=== PATIENT | male | born 1965 | race Hispanic/Latino ===

== ENCOUNTER 2018-09-04 01:48 | Emergency (ER) | payer OTHER ==
[~2018-09-04 01:48] MED LIST: ATOR20TA65 PO; ATRO10DR OP; CHOL200074 PO; DILT-36 PO; FERR-82 PO; FOLI1TAB85 PO; FURO80TA3 PO; INSU100I21 SQ; LABE100T5 PO; PRED5DRO25 OP
[2018-09-04 02:48] LABS: BASOPHILS % (AUTO) 0.7 % (0.0-5.0); EOSINOPHILS % (AUTO) 3.3 % (0.0-8.0); HEMATOCRIT 31.1 % (42-54); LYMPHOCYTES % (AUTO) 20.7 % (21.0-51.0); MEAN CORPUSCULAR HGB CONC 32.4 g/dL (32.0-36.0); MEAN CORPUSCULAR VOLUME 80.2 fL (79-99); NEUTROPHILS % (AUTO) 67.3 % (40.0-77.0); NUCLEATED RED BLOOD CELLS 0.1 % (0.0-0.19); PLATELET COUNT (AUTO) 260 K/uL (130-400); RED BLOOD CELL COUNT(AUTO) 3.88 MIL/uL (4.50-6.20); RED CELL DISTRIBUTION WIDTH 15.9 % (11.0-15.5); WHITE BLOOD COUNT (AUTO) 12.1 K/uL (4.8-10.8)
[2018-09-04 02:56] LABS: ALANINE AMINOTRANSFERASE 28 U/L (12-78); ALBUMIN 3.4 g/dL (3.5-5.0); ASPARTATE AMINOTRANSFERASE 21 U/L (10-37); BILIRUBIN,DIRECT < 0.1 mg/dL (0.0-0.3); BILIRUBIN,TOTAL 0.2 mg/dL (0.2-1.0); CARBON DIOXIDE 27 mmol/L (21-32); CHLORIDE 102 mmol/L (101-111); CREATININE 5.5 mg/dL (0.5-1.5); GLOMERULAR FILTR. RATE CALC 12 mL/min (>60); GLUCOSE,RANDOM 146 mg/dL (70-105); SODIUM SERUM 140 mmol/L (136-145); TOTAL PROTEIN, SERUM 7.8 g/dL (6.0-8.3)
[2018-09-04 02:57] LABS: UREA NITROGEN, BLOOD 81 mg/dL (7-18)
[2018-09-04 03:18] LABS: APPEARANCE,URINE Clear (CLEAR); BILIRUBIN,URINE Negative (NEGATIVE); COLOR,URINE Yellow (YELLOW); GLUCOSE, URINE (UA) Negative (NEGATIVE); KETONES,URINE Negative (NEGATIVE); LEUKOCYTE ESTERASE ,URINE Negative (NEGATIVE); NITRATE,URINE Negative (NEGATIVE); OCCULT BLOOD,URINE Trace (NEGATIVE); PH,URINE 5.5 (5.0-8.0); PROTEIN,URINE POS 2+ (NEGATIVE); UROBILINOGEN,URINE 0.2 mg/dL (0.2-1.0)
[2018-09-04] MEDS ORDERED: MAGNESIUM CITRATE 296 ML SOLUTION ONE (03:19)
[2018-09-04 03:26] LABS: INR 0.93 (0.85-1.15); PARTIAL THROMBOPLASTIN TIME 30.3 SEC (26.3-35.5); PROTHROMBIN TIME 9.8 SEC (9.6-11.6)
[2018-09-04 03:46] LABS: BACTERIA,URINE None Seen /HPF (None Seen); RBC,URINE 0-1 /HPF (0-1); SQUAMOUS EPITHELIAL CELL,UR Rare /HPF (0-2); WBC,URINE None Seen /HPF (0-1)
== END 2018-09-04 04:03 | disposition home or self-care (01) ==
LOC: EDH 01:48
DX: K59.00 Constipation, unspecified (principal); I13.2 Hypertensive heart and chronic kidney disease with heart failure and with stage 5 chronic kidney disease, or end stage renal disease; E11.22 Type 2 diabetes mellitus with diabetic chronic kidney disease; N18.6 End stage renal disease; I50.9 Heart failure, unspecified; I25.10 Atherosclerotic heart disease of native coronary artery without angina pectoris; E78.5 Hyperlipidemia, unspecified; Z98.890 Other specified postprocedural states
CPT/HCPCS: 36415; 74176; 80048; 80076; 81001; 85025; 85610; 85730; 93005

== ENCOUNTER 2018-12-26 06:29 | Emergency (ER) | payer OTHER ==
[2018-12-26 08:10] LABS: RAPID GROUP A STREP NEGATIVE (NEGATIVE)
[2018-12-26 08:12] LABS: BASOPHILS % (AUTO) 0.6 % (0.0-5.0); EOSINOPHILS % (AUTO) 1.4 % (0.0-8.0); HEMATOCRIT 26.4 % (42-54); LYMPHOCYTES % (AUTO) 6.4 % (21.0-51.0); MEAN CORPUSCULAR HEMOGLOBIN 26.2 pg (27.0-33.0); MONOCYTES % (AUTO) 7.7 % (3.0-13.0); NEUTROPHILS % (AUTO) 83.9 % (40.0-77.0); PLATELET COUNT (AUTO) 237 K/uL (130-400); RED BLOOD CELL COUNT(AUTO) 3.23 MIL/uL (4.50-6.20); RED CELL DISTRIBUTION WIDTH 16.3 % (11.0-15.5)
[2018-12-26 08:28] LABS: ALBUMIN 3.3 g/dL (3.5-5.0); BILIRUBIN,TOTAL 0.4 mg/dL (0.2-1.0); CREATININE 5.6 mg/dL (0.5-1.5); POTASSIUM 4.4 mmol/L (3.5-5.1); TOTAL PROTEIN, SERUM 7.4 g/dL (6.0-8.3)
[2018-12-26 08:43] LABS: B-TYPE NATRIURETIC PEPTIDE 378 pg/mL (0-100)
[2018-12-26 09:09] LABS: APPEARANCE,URINE Clear (CLEAR); BILIRUBIN,URINE Negative (NEGATIVE); COLOR,URINE Yellow (YELLOW); GLUCOSE, URINE (UA) Negative (NEGATIVE); KETONES,URINE Negative (NEGATIVE); LEUKOCYTE ESTERASE ,URINE Negative (NEGATIVE); NITRATE,URINE Negative (NEGATIVE); OCCULT BLOOD,URINE Trace (NEGATIVE); PROTEIN,URINE POS 2+ mg/dL (NEGATIVE)
[2018-12-26 09:17] LABS: BACTERIA,URINE None Seen /HPF (None Seen); RBC,URINE 0-1 /HPF (0-1); SQUAMOUS EPITHELIAL CELL,UR Rare /HPF (0-2); WBC,URINE None Seen /HPF (0-1)
== END 2018-12-26 10:04 | disposition home or self-care (01) ==
LOC: EDH 06:29
DX: B34.9 Viral infection, unspecified (principal); I13.2 Hypertensive heart and chronic kidney disease with heart failure and with stage 5 chronic kidney disease, or end stage renal disease; I50.9 Heart failure, unspecified; E11.22 Type 2 diabetes mellitus with diabetic chronic kidney disease; N18.6 End stage renal disease; I25.10 Atherosclerotic heart disease of native coronary artery without angina pectoris; E78.5 Hyperlipidemia, unspecified; Z79.4 Long term (current) use of insulin; Z87.891 Personal history of nicotine dependence
CPT/HCPCS: 36415; 71045; 80053; 81001; 83880; 85025; 87804; 87880; 93005

== ENCOUNTER 2019-02-04 10:51 | Inpatient (IN) | payer OTHER ==
[~2019-02-04] VITALS: Ht 172.7 cm; Wt 119.3 kg
[2019-02-04 11:37] LABS: BASOPHILS % (AUTO) 0.1 % (0.0-5.0); EOSINOPHILS % (AUTO) 5.1 % (0.0-8.0); HEMATOCRIT 25.9 % (42-54); LYMPHOCYTES % (AUTO) 17.5 % (21.0-51.0); MEAN CORPUSCULAR HEMOGLOBIN 26.7 pg (27.0-33.0); MEAN CORPUSCULAR HGB CONC 32.5 g/dL (32.0-36.0); MONOCYTES % (AUTO) 8.7 % (3.0-13.0); NEUTROPHILS % (AUTO) 68.6 % (40.0-77.0); NUCLEATED RED BLOOD CELLS 0.1 % (0.0-0.19); PLATELET COUNT (AUTO) 198 K/uL (130-400); RED BLOOD CELL COUNT(AUTO) 3.16 MIL/uL (4.50-6.20); RED CELL DISTRIBUTION WIDTH 16.3 % (11.0-15.5); WHITE BLOOD COUNT (AUTO) 10.9 K/uL (4.8-10.8)
[2019-02-04] MEDS ORDERED: FUROSEMIDE 10 MG/ML 4ML VIAL ONE (11:47)
[2019-02-04] MEDS ORDERED: NITROGLYCERIN 1GM/1 INCH PACKET TD ONE (11:49)
[2019-02-04 11:52] LABS: ALBUMIN 3.5 g/dL (3.5-5.0); BILIRUBIN,DIRECT 0.1 mg/dL (0.0-0.3); BILIRUBIN,TOTAL 0.3 mg/dL (0.2-1.0); CREATININE 5.6 mg/dL (0.5-1.5); POTASSIUM 4.9 mmol/L (3.5-5.1); TOTAL PROTEIN, SERUM 7.4 g/dL (6.0-8.3)
[2019-02-04] MEDS ORDERED: HYDRALAZINE HCL 20 MG/ML VIAL IV PRN (16:00)
[2019-02-04] MEDS ORDERED: ONDANSETRON HCL 4 MG/2 ML VIAL IV PRN (16:00)
[2019-02-04] MEDS ORDERED: ACETAMINOPHEN 325 MG TAB PO PRN ×2 (16:00)
[2019-02-04] MEDS ORDERED: BUMETANIDE 0.25 MG/ML 10 ML VIAL IV SCH (16:00)
[2019-02-04] MEDS ORDERED: NITROGLYCERIN 0.4 MG SL TAB SL PRN (16:00)
[2019-02-04] MEDS ORDERED: BUMETANIDE 0.25 MG/ML 10 ML 40 ML IV SCH (16:30)
[2019-02-04] MEDS: INSULIN GLARGINE 100 UNITS/ML 10 ML VIAL SQ SCH (21:00)
[2019-02-04] MEDS: ATORVASTATIN CALCIUM 20 MG TABLET PO SCH (21:00)
[2019-02-04] MEDS: HEPARIN SODIUM 5000UNIT/ML 1ML VIAL SQ SCH (21:00)
[2019-02-04] MEDS ORDERED: HEPARIN SODIUM 5000UNIT/ML 1ML VIAL ONE (21:22)
[2019-02-04] MEDS ORDERED: FAMOTIDINE/PF 20 MG/2 ML VIAL IV ONE (21:22)
[2019-02-04] MEDS ORDERED: ATORVASTATIN CALCIUM 20 MG TABLET ONE (21:22)
[2019-02-04 22:19] VITALS: BP 163/99
[2019-02-05 04:28] VITALS: BP 152/70
[2019-02-05] MEDS: INSULIN GLARGINE 100 UNITS/ML 10 ML VIAL SQ SCH ×2 (06:44→21:00)
[2019-02-05 07:00] VITALS: BP 181/83
[2019-02-05] MEDS ORDERED: EPOETIN ALFA 10,000 UNIT/ML VIAL SQ SCH (08:45)
[2019-02-05] MEDS: HEPARIN SODIUM 5000UNIT/ML 1ML VIAL SQ SCH ×2 (08:51→21:00)
[2019-02-05] MEDS: FAMOTIDINE/PF 20 MG/2 ML VIAL IV SCH (09:29)
[2019-02-05] MEDS: DILTIAZEM HCL 120 MG CAP.SR.24H PO SCH (09:30)
[2019-02-05] MEDS: FOLIC ACID/VITAMIN B COMP W-C 1 MG CAPSULE PO SCH (09:30)
[2019-02-05 11:00] VITALS: BP 185/81
--- NOTE | 2019-02-05 15:37 | NUR ---
DC PLAN VISITED WITH PATIENT. PATIENT LIVES WITH SPOUSE. INDEPENDENT ABLE TO PERFORM ADL'S. PATIENT HAS NO SERVICES. PATIENT HAS A SCOOTER, WALKER, WHEEL CHAIR, CPAP. FEELS SAFE TO RETURN HOME. NO DIALYSIS DOES NOT WANT. Addendum: 02/05/19 at 1539 by BUZZ STANLEY RN CM Amended: Links added.
[2019-02-05 16:00] VITALS: BP 145/73
[2019-02-05] MEDS: INSULIN HUMULIN R 100 UNIT/ML 3ML SQ SCH ×2 (16:30→21:00)
[2019-02-05 19:16] VITALS: BP 161/75
[2019-02-05] MEDS: ATORVASTATIN CALCIUM 20 MG TABLET PO SCH (21:43)
--- NOTE | 2019-02-05 21:50 | NUR ---
Subcutaneous heparin non-admin subcutaneous heparin not administered do to thrombocytopenia.
[2019-02-05] MEDS: LACTULOSE 20 GM/30 ML UDCUP PO PRN (22:00)
[2019-02-05 23:44] VITALS: BP 153/81
[2019-02-06 03:40] VITALS: BP 158/73
[2019-02-06 04:06] LABS: HEMATOCRIT 30.3 % (42-54); MEAN CORPUSCULAR HEMOGLOBIN 26.7 pg (27.0-33.0); MEAN CORPUSCULAR HGB CONC 32.5 g/dL (32.0-36.0); MEAN CORPUSCULAR VOLUME 82.1 fL (79-99); PLATELET COUNT (AUTO) 256 K/uL (130-400); RED BLOOD CELL COUNT(AUTO) 3.69 MIL/uL (4.50-6.20); RED CELL DISTRIBUTION WIDTH 16.4 % (11.0-15.5); WHITE BLOOD COUNT (AUTO) 8.9 K/uL (4.8-10.8)
[2019-02-06 04:16] LABS: PHOSPHORUS 6.5 mg/dL (2.5-4.9); POTASSIUM 4.8 mmol/L (3.5-5.1)
[2019-02-06] MEDS: INSULIN HUMULIN R 100 UNIT/ML 3ML SQ SCH ×4 (06:16→21:00)
[2019-02-06] MEDS: LACTULOSE 20 GM/30 ML UDCUP PO PRN (06:29)
[2019-02-06] MEDS: INSULIN GLARGINE 100 UNITS/ML 10 ML VIAL SQ SCH ×2 (06:29→21:00)
[2019-02-06 07:00] VITALS: BP 152/72
--- NOTE | 2019-02-06 07:30 | NUR ---
ASSESSMENT ENCOUNTERED PT A&OX3, CALM COOPERATIVE AND DOES NOT APPEAR TO BE IN ANY DISTRESS NOR ANY NEURO DEFICITS PRESENT. PT DENIES PAIN, SOB, NAUSEA. PT IS AMBULATORY, GAIT SLOW BUT STEADY WITH ASSIST. PT IS LEFT EYE BLIND. CALL LIGHT WITHIN REACH, FAMILY AT BEDSIDE.
[2019-02-06] MEDS: DILTIAZEM HCL 120 MG CAP.SR.24H PO SCH (08:09)
[2019-02-06] MEDS: FAMOTIDINE/PF 20 MG/2 ML VIAL IV SCH (08:09)
[2019-02-06] MEDS: FOLIC ACID/VITAMIN B COMP W-C 1 MG CAPSULE PO SCH (08:09)
[2019-02-06] MEDS: HEPARIN SODIUM 5000UNIT/ML 1ML VIAL SQ SCH ×2 (08:17→19:24)
[2019-02-06 10:35] LABS: APPEARANCE,URINE Clear (CLEAR); BILIRUBIN,URINE Negative (NEGATIVE); COLOR,URINE Yellow (YELLOW); GLUCOSE, URINE (UA) Negative (NEGATIVE); KETONES,URINE Negative (NEGATIVE); LEUKOCYTE ESTERASE ,URINE Negative (NEGATIVE); NITRATE,URINE Negative (NEGATIVE); OCCULT BLOOD,URINE Trace (NEGATIVE); PROTEIN,URINE POS 2+ mg/dL (NEGATIVE); UROBILINOGEN,URINE 0.2 mg/dL (0.2-1.0)
[2019-02-06 10:57] LABS: BACTERIA,URINE None Seen /HPF (None Seen); RBC,URINE 0-1 /HPF (0-1); SQUAMOUS EPITHELIAL CELL,UR 0-2 /HPF (0-2); WBC,URINE None Seen /HPF (0-1)
[2019-02-06 11:00] VITALS: BP 150/75
[2019-02-06] MEDS ORDERED: COMPOUND IV MISC 1 EACH IVSOLN MISC PRN (13:30)
[2019-02-06 16:00] VITALS: BP 149/84
[2019-02-06] MEDS: FUROSEMIDE 40 MG TABLET PO SCH (18:25)
[2019-02-06 19:09] VITALS: BP 142/95
[2019-02-06] MEDS: ATORVASTATIN CALCIUM 20 MG TABLET PO SCH (21:49)
[2019-02-06 23:26] VITALS: BP 131/66
[2019-02-07 03:49] VITALS: BP 160/90
[2019-02-07] MEDS: INSULIN HUMULIN R 100 UNIT/ML 3ML SQ SCH (05:28)
[2019-02-07 07:00] VITALS: BP 178/87
[2019-02-07] MEDS: INSULIN GLARGINE 100 UNITS/ML 10 ML VIAL SQ SCH (07:30)
--- NOTE | 2019-02-07 07:35 | NUR ---
ASSESSMENT ENCOUNTERED PT AMBULATING FROM BATHROOM AND BACK TO BED, GAIT SLOW BUT STEADY WITH ASSISTANCE. PT DENIES PAIN, SOB, NAUSEA. PT IS LEFT EYE BLIND. PT IS A&OX3, CALM COOPERATIVE AND DOES NOT APPEAR TO BE IN ANY DISTRESS NOR ANY NEURO DEFICITS PRESENT. CALL LIGHT WITHIN REACH, FAMILY AT BEDSIDE.
[2019-02-07] MEDS: HEPARIN SODIUM 5000UNIT/ML 1ML VIAL SQ SCH (08:38)
[2019-02-07] MEDS ORDERED: IRON SUCROSE COMPLEX 100 MG in SODIUM CHLORIDE 0.9% 50 ML IV SCH (09:00)
[2019-02-07] MEDS: FOLIC ACID/VITAMIN B COMP W-C 1 MG CAPSULE PO SCH (09:03)
[2019-02-07] MEDS: DILTIAZEM HCL 120 MG CAP.SR.24H PO SCH (09:04)
[2019-02-07] MEDS: FUROSEMIDE 40 MG TABLET PO SCH (09:04)
[2019-02-07 11:00] VITALS: BP 185/86
--- NOTE | 2019-02-07 12:00 | NUR ---
DISCHARGE INSTRUCTIONS GIVEN, PIV REMOVED AND INTACT, DISCHARGE HOME TO FAMILY VEHICLE VIA WHEELCHAIR.
[2019-02-12] MEDS ORDERED: EPOETIN ALFA 10,000 UNIT/ML VIAL SQ SCH (09:00)
== END 2019-02-07 15:05 | disposition home or self-care (01) | DRG 291 ==
LOC: EDH 10:51 → EEVIPCON 10:51 → EDHIP 15:57 → 2AH 22:10
PROVIDERS: ADMIT Internal Medicine; ATTEND Internal Medicine
DX: I13.2 Hypertensive heart and chronic kidney disease with heart failure and with stage 5 chronic kidney disease, or end stage renal disease (principal); I50.31 Acute diastolic (congestive) heart failure; N18.5 Chronic kidney disease, stage 5; J81.1 Chronic pulmonary edema; Z68.41 Body mass index [BMI] 40.0-44.9, adult; N17.9 Acute kidney failure, unspecified; E87.70 Fluid overload, unspecified; E11.22 Type 2 diabetes mellitus with diabetic chronic kidney disease; R09.89 Other specified symptoms and signs involving the circulatory and respiratory systems; D63.1 Anemia in chronic kidney disease; E11.21 Type 2 diabetes mellitus with diabetic nephropathy; E11.40 Type 2 diabetes mellitus with diabetic neuropathy, unspecified; E66.9 Obesity, unspecified; E78.5 Hyperlipidemia, unspecified; G47.33 Obstructive sleep apnea (adult) (pediatric); H54.62 Unqualified visual loss, left eye, normal vision right eye; I48.0 Paroxysmal atrial fibrillation; M17.0 Bilateral primary osteoarthritis of knee; Z91.19 Patient's noncompliance with other medical treatment and regimen; Z83.3 Family history of diabetes mellitus; Z81.1 Family history of alcohol abuse and dependence; Z83.79 Family history of other diseases of the digestive system; Z82.41 Family history of sudden cardiac death; Z82.49 Family history of ischemic heart disease and other diseases of the circulatory system
CPT/HCPCS: 36415; 71045; 80048; 80076; 81001; 82728; 82948; 83540; 83550; 83880; 84100; 84484; 85025; 85027; 93005; 99291; G0378; J0885; J1644; J1756; J1940; J3490

== ENCOUNTER 2019-03-14 13:59 | Observation (INO) | payer OTHER ==
[~2019-03-14] VITALS: Ht 172.7 cm; Wt 117.5 kg
[2019-03-14] MEDS ORDERED: ONDANSETRON HCL 4 MG/2 ML VIAL ONE (14:50)
[2019-03-14] MEDS ORDERED: MORPHINE SULFATE 4 MG/1ML SYG ONE (14:50)
[2019-03-14] MEDS ORDERED: SODIUM CHLORIDE 0.9% 1000ML 1,000 ML IV ONE (14:51)
[2019-03-14] MEDS ORDERED: IOHEXOL 350 MG/ML 100ML INFUS..BTL IV ONE (15:07)
[2019-03-14 15:25] LABS: BASOPHILS % (AUTO) 1.2 % (0.0-5.0); EOSINOPHILS % (AUTO) 3.3 % (0.0-8.0); HEMATOCRIT 32.3 % (42-54); LYMPHOCYTES % (AUTO) 17.8 % (21.0-51.0); MEAN CORPUSCULAR HEMOGLOBIN 26.2 pg (27.0-33.0); MEAN CORPUSCULAR HGB CONC 32.5 g/dL (32.0-36.0); MEAN CORPUSCULAR VOLUME 80.7 fL (79-99); MONOCYTES % (AUTO) 7.3 % (3.0-13.0); NEUTROPHILS % (AUTO) 70.4 % (40.0-77.0); PLATELET COUNT (AUTO) 237 K/uL (130-400); RED CELL DISTRIBUTION WIDTH 16.2 % (11.0-15.5); WHITE BLOOD COUNT (AUTO) 8.4 K/uL (4.8-10.8)
[2019-03-14 15:49] LABS: INR 0.97 (0.85-1.15); PARTIAL THROMBOPLASTIN TIME 31.7 SEC (26.3-35.5); PROTHROMBIN TIME 10.2 SEC (9.6-11.6)
[2019-03-14 15:54] LABS: ALBUMIN 3.5 g/dL (3.5-5.0); BILIRUBIN,TOTAL 0.3 mg/dL (0.2-1.0); CREATININE 6.1 mg/dL (0.5-1.5); TOTAL PROTEIN, SERUM 7.8 g/dL (6.0-8.3)
[2019-03-14] MEDS ORDERED: DEXTROSE 50%-WATER 50 ML DISP.SYRIN IV PRN (18:30)
[2019-03-14] MEDS ORDERED: GLUCAGON 1MG KIT 1 MG ML IM PRN (18:30)
[2019-03-14] MEDS ORDERED: ONDANSETRON HCL 4 MG/2 ML VIAL IV PRN (18:30)
[2019-03-14] MEDS ORDERED: DEXTROSE 5 % AND 0.9 % NACL 1,000 ML IV SCH (18:30)
[2019-03-14] MEDS ORDERED: NITROGLYCERIN 0.4 MG SL TAB SL PRN (18:30)
[2019-03-14 18:52] LABS: HEMOGLOBIN A1C 8.1 % (4.0-6.0)
[2019-03-14] MEDS ORDERED: ACETAMINOPHEN 650 MG SUPPOSITORY RC PRN ×2 (19:15)
[2019-03-14] MEDS ORDERED: DEXTROSE 5 % AND 0.9 % NACL 1,000 ML IV ONE (20:25)
[2019-03-14] MEDS ORDERED: PANTOPRAZOLE 40 MG/VIAL IVP SCH (21:00)
[2019-03-14] MEDS ORDERED: PANTOPRAZOLE SODIUM 80 MG in SODIUM CHLORIDE 0.9% 100 ML IV SCH (22:00)
[2019-03-14 23:34] VITALS: BP 166/79
[2019-03-14 23:41] LABS: HEMATOCRIT 31.8 % (42-54)
[2019-03-15] MEDS ORDERED: INSULIN HUMULIN R 100 UNIT/ML 3ML SQ SCH
[2019-03-15] MEDS ORDERED: LABE200T5 PO (00:44)
[2019-03-15] MEDS ORDERED: FOLI1TAB61 PO (00:44)
[2019-03-15] MEDS ORDERED: ATOR40TA69 PO (00:44)
[2019-03-15] MEDS ORDERED: FERS325 PO (00:44)
[2019-03-15 00:54] VITALS: BP 166/79
[2019-03-15 04:10] VITALS: BP 133/64
[2019-03-15 06:50] LABS: MEAN CORPUSCULAR HEMOGLOBIN 26.5 pg (27.0-33.0); MEAN CORPUSCULAR HGB CONC 32.5 g/dL (32.0-36.0); MEAN CORPUSCULAR VOLUME 81.7 fL (79-99); PLATELET COUNT (AUTO) 209 K/uL (130-400); RED BLOOD CELL COUNT(AUTO) 3.79 MIL/uL (4.50-6.20); RED CELL DISTRIBUTION WIDTH 15.8 % (11.0-15.5); WHITE BLOOD COUNT (AUTO) 9.1 K/uL (4.8-10.8)
[2019-03-15 07:08] LABS: ALBUMIN 3.2 g/dL (3.5-5.0); BILIRUBIN,TOTAL 0.3 mg/dL (0.2-1.0); CREATININE 5.7 mg/dL (0.5-1.5); POTASSIUM 3.9 mmol/L (3.5-5.1); TOTAL PROTEIN, SERUM 7.1 g/dL (6.0-8.3)
[2019-03-15 07:30] VITALS: BP 170/75
[2019-03-15] MEDS ORDERED: BISA5TAB12 PO (10:13)
[2019-03-15] MEDS ORDERED: GLUCAGON 1MG KIT 1 MG ML IM PRN (10:30)
[2019-03-15] MEDS ORDERED: DEXTROSE 50%-WATER 50 ML DISP.SYRIN IV PRN (10:30)
[2019-03-15 11:00] VITALS: BP 170/75
--- NOTE | 2019-03-15 11:14 | NUR ---
FELICIA Millard met with pt and at bedside. Pt lives with Paula, [phone]. Pt is on SSD and a who is 100% service connected. Pt seen at [facility] for [facility] care, and has assist with provider, meds and HH thru [facility]. Pt has scooter, salvatore, akash, w/c and CPAP. Pt states he does not uses CPAP because of nose bleeds during use. [place] Addendum: 03/15/19 at 1118 by SHIVA HYLTON Amended: Links added.
[2019-03-15] MEDS: INSULIN HUMULIN R 100 UNIT/ML 3ML SQ SCH ×3 (11:30→20:57)
--- NOTE | 2019-03-15 11:50 | NUR ---
SURGICAL CONSULT DR. TERRAZAS CALLED REGARDING CONSULT. NO INTERVENTION AT THIS TIME DUE TO PATIENT ASYMPTOMATIC. PATIENT TO FOLLOW UP IN OFFICE IN 1 -2 WEEKS AFTER DISCHARGE.
[2019-03-15] MEDS: LACTULOSE 20 GM/30 ML UDCUP PO PRN (12:51)
[2019-03-15 16:00] VITALS: BP 160/76
[2019-03-15 20:00] VITALS: BP 150/79
[2019-03-16] VITALS: BP 175/89
[2019-03-16] MEDS ORDERED: HYDRALAZINE HCL 20 MG/ML VIAL IV SCH
[2019-03-16] MEDS ORDERED: BISACODYL 5 MG TABLET.DR PO PRN (00:15)
[2019-03-16 01:31] VITALS: BP 162/88
[2019-03-16 04:00] VITALS: BP 147/75
[2019-03-16 05:03] LABS: BASOPHILS % (AUTO) 0.7 % (0.0-5.0); EOSINOPHILS % (AUTO) 3.4 % (0.0-8.0); HEMATOCRIT 29.9 % (42-54); LYMPHOCYTES % (AUTO) 17.6 % (21.0-51.0); MEAN CORPUSCULAR HEMOGLOBIN 26.6 pg (27.0-33.0); MEAN CORPUSCULAR HGB CONC 32.9 g/dL (32.0-36.0); MEAN CORPUSCULAR VOLUME 80.8 fL (79-99); NEUTROPHILS % (AUTO) 70.3 % (40.0-77.0); PLATELET COUNT (AUTO) 220 K/uL (130-400); RED CELL DISTRIBUTION WIDTH 16.1 % (11.0-15.5); WHITE BLOOD COUNT (AUTO) 9.6 K/uL (4.8-10.8)
[2019-03-16 05:16] LABS: CREATININE 5.6 mg/dL (0.5-1.5); POTASSIUM 3.8 mmol/L (3.5-5.1)
[2019-03-16] MEDS: INSULIN HUMULIN R 100 UNIT/ML 3ML SQ SCH (05:32)
[2019-03-16 07:38] VITALS: BP 168/89
[2019-03-16] MEDS: LACTULOSE 20 GM/30 ML UDCUP PO PRN (08:46)
[2019-03-16] MEDS ORDERED: DILTIAZEM HCL 120 MG CAP.SR.24H PO SCH (09:00)
[2019-03-16] MEDS ORDERED: LABETALOL HCL 200 MG TABLET PO SCH (09:00)
[2019-03-16] MEDS ORDERED: FOLIC ACID/VITAMIN B COMP W-C 1 MG CAPSULE PO SCH (09:00)
[2019-03-16] MEDS ORDERED: FERROUS SULFATE 325 MG TABLET.DR PO SCH (09:00)
[2019-03-16] MEDS ORDERED: FUROSEMIDE 80 MG TABLET PO SCH (09:00)
[2019-03-16 11:00] VITALS: BP 132/80
[2019-03-16] MEDS ORDERED: ATORVASTATIN CALCIUM 20 MG TABLET PO SCH (21:00)
== END 2019-03-16 11:31 | disposition home or self-care (01) ==
LOC: EDH 13:59 → EEVIPCON 13:59 → INTOOBSV 18:35 → EDHIP 18:35 → 3CH 23:50
PROVIDERS: ADMIT Hospitalist; ATTEND Hospitalist
DX: K92.2 Gastrointestinal hemorrhage, unspecified (principal); K80.20 Calculus of gallbladder without cholecystitis without obstruction; E66.9 Obesity, unspecified; E78.5 Hyperlipidemia, unspecified; E11.9 Type 2 diabetes mellitus without complications; G47.33 Obstructive sleep apnea (adult) (pediatric); H54.62 Unqualified visual loss, left eye, normal vision right eye; I11.0 Hypertensive heart disease with heart failure; I50.32 Chronic diastolic (congestive) heart failure; I48.0 Paroxysmal atrial fibrillation; M17.0 Bilateral primary osteoarthritis of knee; I25.10 Atherosclerotic heart disease of native coronary artery without angina pectoris; Z82.49 Family history of ischemic heart disease and other diseases of the circulatory system; Z83.3 Family history of diabetes mellitus; Z79.899 Other long term (current) drug therapy
CPT/HCPCS: 36415 ×3; 74176; 80048; 80053 ×2; 82948 ×7; 83036; 83690; 83880; 85014; 85018; 85025 ×2; 85027; 85610; 85730; 86850; 86900; 86901; 93005; 96365; 96366; 96375; 99291; C9113 ×4; G0378 ×31; J0360; J2270; J2405; J7030; J7042; Q9967

== ENCOUNTER → 2019-06-25 | Outpatient (CLI) | payer OTHER ==
[~2019-06-25] MED LIST changes: -ATOR20TA65 PO; +ATOR40TA69 PO; -ATRO10DR OP; +BISA5TAB12 PO; -FERR-82 PO; +FERS325 PO; +FOLI1TAB61 PO; -FOLI1TAB85 PO; -LABE100T5 PO; +LABE200T5 PO; -PRED5DRO25 OP
== END | disposition home or self-care (01) ==
LOC: SHCH 09:50
PROVIDERS: ATTEND Internal Medicine Cardiovascular Disease
DX: I35.0 Nonrheumatic aortic (valve) stenosis (principal)
CPT/HCPCS: 93306

== ENCOUNTER 2019-07-20 20:18 | Inpatient (IN) | payer OTHER ==
[~2019-07-20] VITALS: Ht 172.7 cm; Wt 113.0 kg
[2019-07-20 07:24] VITALS: BP 135/81
[2019-07-20 20:43] LABS: HEMATOCRIT 33.4 % (42-54); LYMPHOCYTES % (AUTO) 9.4 % (21.0-51.0); MEAN CORPUSCULAR HEMOGLOBIN 26.8 pg (27.0-33.0); MEAN CORPUSCULAR HGB CONC 33.1 g/dL (32.0-36.0); MEAN CORPUSCULAR VOLUME 80.9 fL (79-99); NEUTROPHILS % (AUTO) 79.6 % (40.0-77.0); PLATELET COUNT (AUTO) 255 K/uL (130-400); RED BLOOD CELL COUNT(AUTO) 4.13 MIL/uL (4.50-6.20); RED CELL DISTRIBUTION WIDTH 16.9 % (11.0-15.5); WHITE BLOOD COUNT (AUTO) 13.2 K/uL (4.8-10.8)
[2019-07-20] MEDS ORDERED: ONDANSETRON HCL 4 MG/2 ML VIAL ONE (20:56)
[2019-07-20] MEDS ORDERED: MORPHINE SULFATE 8 MG/ML VIAL ONE (20:56)
[2019-07-20 21:31] LABS: ALBUMIN 3.7 g/dL (3.5-5.0); BILIRUBIN,TOTAL 0.7 mg/dL (0.2-1.0); CREATININE 6.7 mg/dL (0.5-1.5); POTASSIUM 4.1 mmol/L (3.5-5.1); TOTAL PROTEIN, SERUM 7.6 g/dL (6.0-8.3)
[2019-07-20] MEDS ORDERED: MORPHINE SULFATE 4 MG/1ML SYG ONE (22:35)
[2019-07-20] MEDS ORDERED: ZOSYN 3.375GM+NS 50ML 50 ML IV ONE (23:02)
[2019-07-20 23:31] LABS: INR 0.95 (0.85-1.15); PARTIAL THROMBOPLASTIN TIME 28.1 SEC (26.3-35.5)
[2019-07-20] MEDS ORDERED: ACETAMINOPHEN 325 MG TAB PO PRN ×2 (23:45)
[2019-07-21] VITALS (7 sets, daily range): BP systolic 139–170; BP diastolic 80–93
[2019-07-21] MEDS ORDERED: SODIUM CHLORIDE 0.9% 1000ML 1,000 ML IV ONE (00:03)
--- NOTE | 2019-07-21 00:45 | NUR ---
ADMISSION. PT TRANSFERRED FROM ER VIA STRETCHER, PT SLEEPING, ABLE TO BE AROUSED. PT SPOUSE AT BEDSIDE, PROVIDING ADMISSION INFORMATION, PATIENT UNDER INFLUENCE OF MORPHINE. PATIENT SPOUSE ORIENTED TO ROOM, CALL TESFAYE WITHIN REACH, BED IN LOWEST POSITION. PT SPOUSE STATED THAT SHE WOULD LIKE PATIENT TO BE CONFIDENTIAL, NO INFORMATION TO BE GIVEN OUT, PT SPOUSE WAS MADE AWARE TO GO TO REGISTRATION OFFICE TO FILL OUT PROPER DOCUMENTATION, STATED WILL GO. Addendum: 07/21/19 at 0137 by ERICKSON DAVIS RN Amended: Links added.
[2019-07-21] MEDS ORDERED: LABETALOL HCL 200 MG TABLET PO PRN (02:30)
[2019-07-21 05:36] LABS: APPEARANCE,URINE Clear (CLEAR); BILIRUBIN,URINE Negative (NEGATIVE); COLOR,URINE Yellow (YELLOW); GLUCOSE, URINE (UA) Negative (NEGATIVE); KETONES,URINE Negative (NEGATIVE); LEUKOCYTE ESTERASE ,URINE Negative (NEGATIVE); NITRATE,URINE Negative (NEGATIVE); OCCULT BLOOD,URINE Negative (NEGATIVE); PH,URINE 5.5 (5.0-8.0); PROTEIN,URINE 300 mg/dL (NEGATIVE)
[2019-07-21 05:38] LABS: BASOPHILS % (AUTO) 0.6 % (0.0-5.0); EOSINOPHILS % (AUTO) 1.5 % (0.0-8.0); HEMATOCRIT 30.5 % (42-54); LYMPHOCYTES % (AUTO) 9.3 % (21.0-51.0); MEAN CORPUSCULAR HEMOGLOBIN 26.8 pg (27.0-33.0); MONOCYTES % (AUTO) 8.4 % (3.0-13.0); NEUTROPHILS % (AUTO) 80.2 % (40.0-77.0); PLATELET COUNT (AUTO) 226 K/uL (130-400); RED BLOOD CELL COUNT(AUTO) 3.76 MIL/uL (4.50-6.20); RED CELL DISTRIBUTION WIDTH 17.2 % (11.0-15.5); WHITE BLOOD COUNT (AUTO) 12.8 K/uL (4.8-10.8)
[2019-07-21 05:48] LABS: CREATININE 6.8 mg/dL (0.5-1.5); POTASSIUM 4.1 mmol/L (3.5-5.1)
[2019-07-21] MEDS: INSULIN HUMULIN R 100 UNIT/ML 3ML SQ SCH ×4 (06:50→22:57)
[2019-07-21 07:00] LABS: BACTERIA,URINE Rare /HPF (None Seen); RBC,URINE 0-1 /HPF (0-1); SQUAMOUS EPITHELIAL CELL,UR Rare /HPF (0-2); WBC,URINE 0-1 /HPF (0-1)
[2019-07-21] MEDS: CHOLECALCIFEROL 1000 UNIT PO SCH (09:00)
[2019-07-21] MEDS: DILTIAZEM HCL 120 MG CAP.SR.24H PO SCH (09:35)
[2019-07-21] MEDS: HEPARIN SODIUM 5000UNIT/ML 1ML VIAL SQ SCH ×2 (09:35→21:00)
[2019-07-21] MEDS: FERROUS SULFATE 325 MG TABLET.DR PO SCH ×3 (09:36→21:00)
[2019-07-21] MEDS: FOLIC ACID/VITAMIN B COMP W-C 1 MG CAP/TAB PO SCH (09:36)
[2019-07-21] MEDS: FUROSEMIDE 80 MG TABLET PO SCH ×2 (09:36→21:00)
[2019-07-21] MEDS: HYDROMORPHONE 1 MG/1 ML AMP IV PRN ×4 (10:30→23:47)
[2019-07-21] MEDS: ZOSYN 3.375GM+NS 50ML 50 ML IV SCH ×2 (10:30→22:48)
--- NOTE | 2019-07-21 13:20 | NUR ---
IVY NOTIFIED OF THE CONSULT ORDER CBC, BMP, PHOS AND MAG IN THE MORNING, I&O, DAILY WEIGHTS.
--- NOTE | 2019-07-21 14:04 | NUR ---
INITIAL MET WITH PATIENT AND FAMILY AT BEDSIDE. PT USES A CANE, WALKER, W/CHAIR, SCOOTER; BLIND IN ONE EYE, NO PROVIDER, VERY SUPPORTIVE FAMILY LIVES WITH SPOUSE MIGUEL ANGEL WHO WILL PROVIDE TRANSPORT DCP IS HOME. FOLLOW [facility]. READY FOR SURGERY TOMORROW PER DR. TERRAZAS. VERY UNCOMFORTABLE RIGHT NOW Addendum: 07/21/19 at 1703 by ANGÉLICA VERAS RN Amended: Links added.
[2019-07-21] MEDS: ATORVASTATIN CALCIUM 40 MG TABLET PO SCH (21:00)
[2019-07-21] MEDS: ONDANSETRON HCL 4 MG/2 ML VIAL IV PRN (22:48)
[2019-07-22] VITALS (20 sets, daily range): BP systolic 112–154; BP diastolic 50–84
[2019-07-22] MEDS: HYDROMORPHONE 1 MG/1 ML AMP IV PRN ×4 (03:49→20:55)
[2019-07-22] MEDS ORDERED: HYDROMORPHONE HCL 2 MG/ML VIAL IVP ONE (05:00)
[2019-07-22 05:17] LABS: HEMATOCRIT 35.1 % (42-54); MEAN CORPUSCULAR HEMOGLOBIN 26.5 pg (27.0-33.0); MEAN CORPUSCULAR HGB CONC 31.8 g/dL (32.0-36.0); MEAN CORPUSCULAR VOLUME 83.6 fL (79-99); NUCLEATED RED BLOOD CELLS 0.1 % (0.0-0.19); PLATELET COUNT (AUTO) 222 K/uL (130-400); RED CELL DISTRIBUTION WIDTH 17.6 % (11.0-15.5); WHITE BLOOD COUNT (AUTO) 25.2 K/uL (4.8-10.8)
[2019-07-22 05:36] LABS: BAND NEUTROPHILS % (MANUAL) 4 % (0-2); LYMPHOCYTES % (MANUAL) 3 % (22-44); MAN.DIFF COMMENT-IMPRESSION MANUAL DIFFERENTIAL; MONOCYTES % (MANUAL) 2 % (2-9); SEGMENTED NEUTROPHILS % 91 % (40-70)
[2019-07-22 05:37] LABS: PLATELET MORPHOLOGY COMMENT ADEQUATE
[2019-07-22 06:02] LABS: CREATININE 7.7 mg/dL (0.5-1.5); PHOSPHORUS 6.1 mg/dL (2.5-4.9); POTASSIUM 4.3 mmol/L (3.5-5.1)
[2019-07-22] MEDS: INSULIN HUMULIN R 100 UNIT/ML 3ML SQ SCH ×4 (06:39→21:03)
--- NOTE | 2019-07-22 06:55 | NUR ---
PAGED LOOPING MACHINE OPERATOR FOR CHEST PAIN PT C/O OF SHARP, THROBBING CHEST PAIN. APPLIED NASAL CANNULA AT 2 LPM. NO OTHER CHEST PAIN INTERVENTION AVAILABLE. MAXINE RETURNED PAGE. ORDERED A SERIES CARDIAC PANEL Q6H, EKG NOW, MORPHINE 2MG Q4HR FOR PAIN. MAXINE REPORTS THAT SHE WILL BE IN TO SEE THE PATIENT THIS AM.
[2019-07-22] MEDS ORDERED: MORPHINE SULFATE 2 MG/ML 1ML SYG IM PRN (07:00)
[2019-07-22] MEDS: DILTIAZEM HCL 120 MG CAP.SR.24H PO SCH (08:28)
[2019-07-22] MEDS: ONDANSETRON HCL 4 MG/2 ML VIAL IV PRN ×2 (08:28→17:32)
[2019-07-22] MEDS: FUROSEMIDE 80 MG TABLET PO SCH ×2 (08:28→20:52)
--- NOTE | 2019-07-22 08:29 | NUR ---
spoke to dr. cortez about the episode of chest at 5 or 6 am. notified him that the patient's ekg is afib with rvr at 103, waiting for the cardiac panel result.
[2019-07-22] MEDS ORDERED: SODIUM CHLORIDE 0.9% 1000ML 1,000 ML IV ONE (08:35)
[2019-07-22] MEDS ORDERED: HEPARIN SODIUM 1000UNIT/ML 10ML VIAL ONE ×2 (08:42→10:57)
[2019-07-22] MEDS: FOLIC ACID/VITAMIN B COMP W-C 1 MG CAP/TAB PO SCH (09:00)
[2019-07-22] MEDS: FERROUS SULFATE 325 MG TABLET.DR PO SCH ×3 (09:00→20:53)
[2019-07-22] MEDS: CHOLECALCIFEROL 1000 UNIT PO SCH (09:00)
[2019-07-22] MEDS: HEPARIN SODIUM 5000UNIT/ML 1ML VIAL SQ SCH ×2 (09:00→20:54)
[2019-07-22] MEDS ORDERED: DEXAMETHASONE SOD PHOSPHATE 10MG/ML 1ML VIAL ONE (09:21)
[2019-07-22] MEDS ORDERED: LIDOCAINE PF 2% 5ML ABBOJECT ONE (09:21)
[2019-07-22] MEDS ORDERED: SUCCINYLCHOLINE 200MG/10ML SYR ONE (09:21)
[2019-07-22] MEDS ORDERED: ONDANSETRON HCL 4 MG/2 ML VIAL ONE (09:21)
[2019-07-22] MEDS ORDERED: ROCURONIUM 10MG/1ML SYR 10 MG/ML ML ONE (09:22)
[2019-07-22] MEDS ORDERED: GLYCOPYRROLATE 1 MG/5 ML SYRINGE ONE (09:22)
[2019-07-22] MEDS ORDERED: PROPOFOL 10 MG/ML 20ML VIAL IV ONE (09:22)
[2019-07-22] MEDS ORDERED: FENTANYL CITRATE PF 50 MCG/1 ML 2ML VIAL ONE (09:22)
[2019-07-22] MEDS ORDERED: NEOSTIGMINE 5MG/5ML SYR IV ONE (09:22)
[2019-07-22] MEDS ORDERED: PHENYLEPHRINE HCL 10 MG/ML 1ML VIAL IV ONE (09:40)
[2019-07-22] MEDS ORDERED: SODIUM BICARB 8.4% 50ML SYRINGE ONE (11:09)
[2019-07-22 11:54] LABS: HEMATOCRIT 31.4 % (42-54); MEAN CORPUSCULAR HEMOGLOBIN 27.2 pg (27.0-33.0); MEAN CORPUSCULAR HGB CONC 32.9 g/dL (32.0-36.0); MEAN CORPUSCULAR VOLUME 82.7 fL (79-99); PLATELET COUNT (AUTO) 233 K/uL (130-400); RED CELL DISTRIBUTION WIDTH 17.4 % (11.0-15.5); WHITE BLOOD COUNT (AUTO) 28.2 K/uL (4.8-10.8)
[2019-07-22 12:06] LABS: POTASSIUM 5.8 mmol/L (3.5-5.1)
[2019-07-22 12:08] LABS: CREATININE 8.2 mg/dL (0.5-1.5)
[2019-07-22] MEDS: ZOSYN 3.375GM+NS 50ML 50 ML IV SCH ×2 (13:20→23:51)
[2019-07-22 14:50] LABS: CREATINE KINASE, TOTAL 278 U/L (21-232); MYOGLOBIN 1138 ng/mL (10-92); TROPONIN I < 0.04 ng/mL (0.00-0.06)
[2019-07-22 19:29] LABS: CREATINE KINASE, TOTAL 285 U/L (21-232); MYOGLOBIN 1158 ng/mL (10-92); TROPONIN I < 0.04 ng/mL (0.00-0.06)
[2019-07-22] MEDS: LACTULOSE 20 GM/30 ML UDCUP PO PRN (20:52)
[2019-07-22] MEDS: ATORVASTATIN CALCIUM 40 MG TABLET PO SCH (20:54)
[2019-07-23] MEDS: HYDROMORPHONE 1 MG/1 ML AMP IV PRN ×4 (02:04→23:24)
[2019-07-23 04:01] VITALS: BP 141/70
[2019-07-23 05:24] LABS: BASOPHILS % (AUTO) 0.5 % (0.0-5.0); EOSINOPHILS % (AUTO) 0.5 % (0.0-8.0); HEMATOCRIT 29.2 % (42-54); LYMPHOCYTES % (AUTO) 4.9 % (21.0-51.0); MEAN CORPUSCULAR HEMOGLOBIN 26.7 pg (27.0-33.0); MEAN CORPUSCULAR HGB CONC 32.7 g/dL (32.0-36.0); MEAN CORPUSCULAR VOLUME 81.6 fL (79-99); NEUTROPHILS % (AUTO) 85.1 % (40.0-77.0); PLATELET COUNT (AUTO) 207 K/uL (130-400); RED BLOOD CELL COUNT(AUTO) 3.58 MIL/uL (4.50-6.20); RED CELL DISTRIBUTION WIDTH 17.5 % (11.0-15.5); WHITE BLOOD COUNT (AUTO) 19.8 K/uL (4.8-10.8)
[2019-07-23 05:54] LABS: ALBUMIN 2.5 g/dL (3.5-5.0); BILIRUBIN,TOTAL 4.2 mg/dL (0.2-1.0); PHOSPHORUS 6.3 mg/dL (2.5-4.9)
[2019-07-23 05:59] LABS: CREATININE 9.4 mg/dL (0.5-1.5)
[2019-07-23] MEDS: INSULIN HUMULIN R 100 UNIT/ML 3ML SQ SCH ×4 (07:17→21:00)
[2019-07-23] MEDS: SODIUM CHLORIDE 0.9% 1000ML 1,000 ML IV SCH (07:19)
[2019-07-23 08:00] VITALS: BP 125/69
[2019-07-23] MEDS: CHOLECALCIFEROL 1000 UNIT PO SCH (09:00)
[2019-07-23] MEDS: HEPARIN SODIUM 5000UNIT/ML 1ML VIAL SQ SCH ×2 (09:00→20:11)
[2019-07-23] MEDS: DILTIAZEM HCL 120 MG CAP.SR.24H PO SCH (09:36)
[2019-07-23] MEDS: FERROUS SULFATE 325 MG TABLET.DR PO SCH ×3 (09:36→20:12)
[2019-07-23] MEDS: FOLIC ACID/VITAMIN B COMP W-C 1 MG CAP/TAB PO SCH (09:36)
[2019-07-23] MEDS: FUROSEMIDE 80 MG TABLET PO SCH ×2 (09:37→21:41)
[2019-07-23] MEDS: ONDANSETRON HCL 4 MG/2 ML VIAL IV PRN (09:47)
[2019-07-23] MEDS: ZOSYN 3.375GM+NS 50ML 50 ML IV SCH ×2 (11:26→23:24)
[2019-07-23 12:00] VITALS: BP 144/72
[2019-07-23] MEDS: LACTULOSE 20 GM/30 ML UDCUP PO PRN (15:27)
[2019-07-23] MEDS ORDERED: SODIUM CHLORIDE 0.9% 500 ML IV SCH (15:45)
[2019-07-23 16:00] VITALS: BP 145/92
[2019-07-23 19:33] VITALS: BP 130/74
[2019-07-23 20:31] LABS: APPEARANCE,URINE SL CLOUDY (CLEAR); BILIRUBIN,URINE SMALL (NEGATIVE); COLOR,URINE YELLOW (YELLOW); GLUCOSE, URINE (UA) NEGATIVE (NEGATIVE); KETONES,URINE NEGATIVE (NEGATIVE); LEUKOCYTE ESTERASE ,URINE NEGATIVE (NEGATIVE); NITRATE,URINE NEGATIVE (NEGATIVE); OCCULT BLOOD,URINE SMALL (NEGATIVE); PH,URINE 5.5 (5.0-8.0); PROTEIN,URINE 100 mg/dL (NEGATIVE)
[2019-07-23 20:40] LABS: AMORPHOUS SEDIMENT,UR Moderate /LPF (None Seen); BACTERIA,URINE Few /HPF (None Seen); MUCUS,URINE Few LPF (None Seen); SQUAMOUS EPITHELIAL CELL,UR 0-2 /HPF (0-2)
[2019-07-23] MEDS: ATORVASTATIN CALCIUM 40 MG TABLET PO SCH (21:00)
[2019-07-23 23:41] VITALS: BP 144/75
[2019-07-24] VITALS (10 sets, daily range): BP systolic 123–173; BP diastolic 72–109
[2019-07-24] MEDS: FAMOTIDINE/PF 20 MG/2 ML VIAL IV SCH ×2 (01:07→20:51)
[2019-07-24] MEDS: SODIUM CHLORIDE 0.9% 1000ML 1,000 ML IV SCH ×2 (03:19→23:19)
[2019-07-24 05:15] LABS: BASOPHILS % (AUTO) 0.3 % (0.0-5.0); EOSINOPHILS % (AUTO) 3.8 % (0.0-8.0); HEMATOCRIT 27.2 % (42-54); LYMPHOCYTES % (AUTO) 10.8 % (21.0-51.0); MEAN CORPUSCULAR HEMOGLOBIN 26.5 pg (27.0-33.0); MEAN CORPUSCULAR HGB CONC 32.7 g/dL (32.0-36.0); MEAN CORPUSCULAR VOLUME 81.2 fL (79-99); MONOCYTES % (AUTO) 7.9 % (3.0-13.0); NEUTROPHILS % (AUTO) 77.2 % (40.0-77.0); PLATELET COUNT (AUTO) 203 K/uL (130-400); RED BLOOD CELL COUNT(AUTO) 3.35 MIL/uL (4.50-6.20); RED CELL DISTRIBUTION WIDTH 17.5 % (11.0-15.5); WHITE BLOOD COUNT (AUTO) 13.2 K/uL (4.8-10.8)
[2019-07-24 05:23] LABS: PARTIAL THROMBOPLASTIN TIME 31.8 SEC (26.3-35.5); PROTHROMBIN TIME 10.5 SEC (9.6-11.6)
[2019-07-24 05:28] LABS: ALBUMIN 2.5 g/dL (3.5-5.0); BILIRUBIN,TOTAL 3.5 mg/dL (0.2-1.0); MAGNESIUM 2.1 mg/dL (1.80-2.40); PHOSPHORUS 6.6 mg/dL (2.5-4.9); POTASSIUM 4.3 mmol/L (3.5-5.1); TOTAL PROTEIN, SERUM 7.2 g/dL (6.0-8.3)
[2019-07-24 05:43] LABS: CREATININE 10.7 mg/dL (0.5-1.5)
[2019-07-24] MEDS: INSULIN HUMULIN R 100 UNIT/ML 3ML SQ SCH ×4 (06:10→20:48)
[2019-07-24] MEDS ORDERED: SODIUM CHLORIDE 0.9% 1000ML 500 ML IV SCH (06:15)
--- NOTE | 2019-07-24 08:01 | NUR ---
PT UPDATE Pt initially refused hemodialysis according to report, Pt verbalized agreement to doing HD today, Dr. Dalton paged for orders. Pending call back.
[2019-07-24] MEDS: DILTIAZEM HCL 120 MG CAP.SR.24H PO SCH (09:00)
[2019-07-24] MEDS: FUROSEMIDE 80 MG TABLET PO SCH ×2 (09:00→20:52)
[2019-07-24] MEDS: FERROUS SULFATE 325 MG TABLET.DR PO SCH ×3 (09:00→20:52)
[2019-07-24] MEDS: CHOLECALCIFEROL 1000 UNIT PO SCH (09:00)
[2019-07-24] MEDS: FOLIC ACID/VITAMIN B COMP W-C 1 MG CAP/TAB PO SCH (09:00)
[2019-07-24] MEDS: HEPARIN SODIUM 5000UNIT/ML 1ML VIAL SQ SCH ×2 (09:00→20:36)
[2019-07-24] MEDS ORDERED: ACETAMINOPHEN EXTRA STRENGTH 500 MG TABLET PO PRN (11:00)
[2019-07-24] MEDS: ZOSYN 3.375GM+NS 50ML 50 ML IV SCH ×2 (11:00→23:33)
[2019-07-24] MEDS ORDERED: LIDOCAINE HCL 1% MDV 50ML VIAL ONE (11:52)
--- NOTE | 2019-07-24 12:07 | NUR ---
PT UPDATE Pt taken down for permacath placement, Stable VS, Nursing will continue to monitor.
--- NOTE | 2019-07-24 13:00 | NUR ---
Pt back from left IJ perma-cath placement, nurse reported that pt has been very restless and was placed on a non-rebreather mask due to oxygen saturation remained at 91% and BP 174/137. Pt very anxious and instructed to leave the non rebreather mask on until he he starts dialysis. Hemodialysis nurse informed of pt back in the room and she said she will be here in about 15 to 20 mins., Elijah BRENNERocular care technician nurse aware
[2019-07-24] MEDS ORDERED: NITROGLYCERIN 0.4 MG SL TAB SL PRN (15:00)
[2019-07-24] MEDS ORDERED: ACETAMINOPHEN 325 MG TAB PO PRN (15:00)
[2019-07-24] MEDS ORDERED: 0.9% SODIUM CHLORIDE 1000 ML IV BAG IV PRN (15:00)
[2019-07-24] MEDS ORDERED: SODIUM CHLORIDE 0.9% 1000ML 1,000 ML IV PRN (15:00)
[2019-07-24] MEDS ORDERED: HEPARIN SODIUM 5000UNIT/ML 1ML VIAL IJ PRN ×2 (15:00→16:00)
[2019-07-24 16:32] LABS: HEMATOCRIT 29.1 % (42-54)
[2019-07-24 16:45] LABS: HEMOGLOBIN A1C 8.8 % (4.0-6.0)
[2019-07-24 16:48] LABS: ALBUMIN 2.7 g/dL (3.5-5.0); CREATININE 7.2 mg/dL (0.5-1.5)
[2019-07-24 17:26] LABS: % IRON SATURATION 19.3 % (30-44)
[2019-07-24] MEDS: ATORVASTATIN CALCIUM 40 MG TABLET PO SCH (20:52)
[2019-07-25 03:51] VITALS: BP 142/70
[2019-07-25 05:34] LABS: EOSINOPHILS % (AUTO) 4.3 % (0.0-8.0); HEMATOCRIT 29.8 % (42-54); LYMPHOCYTES % (AUTO) 13.5 % (21.0-51.0); MEAN CORPUSCULAR HEMOGLOBIN 26.7 pg (27.0-33.0); MONOCYTES % (AUTO) 10.1 % (3.0-13.0); NEUTROPHILS % (AUTO) 71.1 % (40.0-77.0); PLATELET COUNT (AUTO) 242 K/uL (130-400); RED BLOOD CELL COUNT(AUTO) 3.68 MIL/uL (4.50-6.20); RED CELL DISTRIBUTION WIDTH 17.8 % (11.0-15.5); WHITE BLOOD COUNT (AUTO) 8.3 K/uL (4.8-10.8)
[2019-07-25 06:11] LABS: POTASSIUM 3.6 mmol/L (3.5-5.1)
[2019-07-25] MEDS: INSULIN HUMULIN R 100 UNIT/ML 3ML SQ SCH ×4 (06:17→23:10)
[2019-07-25 06:26] LABS: CREATININE 8.8 mg/dL (0.5-1.5)
[2019-07-25 08:00] VITALS: BP 173/80
[2019-07-25] MEDS: CHOLECALCIFEROL 1000 UNIT PO SCH (09:00)
[2019-07-25] MEDS: FUROSEMIDE 80 MG TABLET PO SCH ×2 (09:00→21:04)
[2019-07-25] MEDS: FERROUS SULFATE 325 MG TABLET.DR PO SCH ×3 (09:35→21:04)
[2019-07-25] MEDS: FOLIC ACID/VITAMIN B COMP W-C 1 MG CAP/TAB PO SCH (09:35)
[2019-07-25] MEDS: HEPARIN SODIUM 5000UNIT/ML 1ML VIAL SQ SCH ×2 (09:47→20:32)
[2019-07-25] MEDS: ZOSYN 3.375GM+NS 50ML 50 ML IV SCH ×2 (11:21→23:23)
[2019-07-25 11:26] VITALS: BP 160/99
[2019-07-25] MEDS: DILTIAZEM HCL 120 MG CAP.SR.24H PO SCH (14:55)
[2019-07-25 16:00] VITALS: BP 160/101
--- NOTE | 2019-07-25 18:17 | NUR ---
OUTPT HD: Spoke w Dr Dalton this afternoon regarding HD plans. Orders received for CM to set up HD @ [facility]. Met w pt and spouse this afternoon to discuss Outpt HD orders from Dr. Dalton. Pt in agreement. [facility]CK/PC consents signed for US [facility]. CM to f/u w referral once HD tx and lab avail.
[2019-07-25 19:54] VITALS: BP 157/89
[2019-07-25] MEDS: FAMOTIDINE/PF 20 MG/2 ML VIAL IV SCH (21:03)
[2019-07-25] MEDS: ATORVASTATIN CALCIUM 40 MG TABLET PO SCH (21:04)
[2019-07-25 23:32] VITALS: BP 151/84
[2019-07-26 03:42] VITALS: BP 151/79
[2019-07-26] MEDS: INSULIN HUMULIN R 100 UNIT/ML 3ML SQ SCH ×4 (05:33→20:20)
[2019-07-26 06:02] LABS: BASOPHILS % (AUTO) 0.9 % (0.0-5.0); EOSINOPHILS % (AUTO) 5.4 % (0.0-8.0); LYMPHOCYTES % (AUTO) 15.5 % (21.0-51.0); MEAN CORPUSCULAR HEMOGLOBIN 27.1 pg (27.0-33.0); MEAN CORPUSCULAR HGB CONC 33.4 g/dL (32.0-36.0); MEAN CORPUSCULAR VOLUME 81.4 fL (79-99); MONOCYTES % (AUTO) 12.1 % (3.0-13.0); NEUTROPHILS % (AUTO) 66.1 % (40.0-77.0); PLATELET COUNT (AUTO) 215 K/uL (130-400); RED BLOOD CELL COUNT(AUTO) 3.69 MIL/uL (4.50-6.20); RED CELL DISTRIBUTION WIDTH 17.3 % (11.0-15.5); WHITE BLOOD COUNT (AUTO) 8.2 K/uL (4.8-10.8)
[2019-07-26 06:18] LABS: POTASSIUM 3.5 mmol/L (3.5-5.1)
[2019-07-26 06:43] LABS: CREATININE 9.5 mg/dL (0.5-1.5)
[2019-07-26 07:00] VITALS: BP 116/64
[2019-07-26] MEDS: DILTIAZEM HCL 120 MG CAP.SR.24H PO SCH (09:00)
[2019-07-26] MEDS: HEPARIN SODIUM 5000UNIT/ML 1ML VIAL SQ SCH ×2 (09:00→21:00)
[2019-07-26] MEDS: CHOLECALCIFEROL 1000 UNIT PO SCH (09:00)
[2019-07-26 11:00] VITALS: BP 137/86
[2019-07-26] MEDS: FERROUS SULFATE 325 MG TABLET.DR PO SCH ×3 (14:00→21:00)
[2019-07-26] MEDS: FOLIC ACID/VITAMIN B COMP W-C 1 MG CAP/TAB PO SCH (14:07)
[2019-07-26] MEDS: ZOSYN 3.375GM+NS 50ML 50 ML IV SCH ×2 (14:08→23:48)
[2019-07-26] MEDS: FUROSEMIDE 80 MG TABLET PO SCH ×2 (14:08→21:38)
[2019-07-26 16:00] VITALS: BP 126/62
--- NOTE | 2019-07-26 18:26 | NUR ---
Nutrition Intervention: Nutrition screen based on LOS x 6 days. Pt. S/P Lap yanick on 07/22/19 and Left IJ permacath placement on 07/24/19. Pt. on Renal Dialysis diet with good p.o. intake, as per pt. Labs reviewed(Alb 2.7, BUN 103, Creat 9.5, GFR 6, BG 235, HgbA1c 8.8%). LBM: 07/25/19. SR-21, josefina. incisions. Pt. and spouse educated on Diabetic Renal Dialysis diet and provided with education material. Pt. and spouse verbalized understanding. Recommendations: 1) Rec. 75gm CCD Renal Dialysis diet. 2) Diabetic Renal Dialysis diet education given to patient and spouse 3) Rec. 30ml ProMod BID with B'fast and dinner meals. 4) Continue to monitor pt's nutritional status. 5) Consult RD as nutrition concerns arise. Addendum: 07/26/19 at [address] Amended: Links added.
[2019-07-26 19:40] VITALS: BP 181/100
[2019-07-26] MEDS: ATORVASTATIN CALCIUM 40 MG TABLET PO SCH (21:00)
[2019-07-26] MEDS: FAMOTIDINE/PF 20 MG/2 ML VIAL IV SCH (21:38)
[2019-07-26 23:29] VITALS: BP 141/78
[2019-07-27 04:04] VITALS: BP 152/88
[2019-07-27 05:26] LABS: HEMATOCRIT 32.2 % (42-54); MEAN CORPUSCULAR HEMOGLOBIN 26.6 pg (27.0-33.0); MEAN CORPUSCULAR HGB CONC 32.9 g/dL (32.0-36.0); PLATELET COUNT (AUTO) 258 K/uL (130-400); RED BLOOD CELL COUNT(AUTO) 3.98 MIL/uL (4.50-6.20); RED CELL DISTRIBUTION WIDTH 17.3 % (11.0-15.5); WHITE BLOOD COUNT (AUTO) 10.3 K/uL (4.8-10.8)
[2019-07-27 05:31] LABS: BAND NEUTROPHILS % (MANUAL) 5 % (0-2); BASOPHILS % (MANUAL) 1 % (0-2); LYMPHOCYTES % (MANUAL) 15 % (22-44); MONOCYTES % (MANUAL) 5 % (2-9); SEGMENTED NEUTROPHILS % 74 % (40-70)
[2019-07-27 05:32] LABS: MAN.DIFF COMMENT-IMPRESSION MANUAL DIFFERENTIAL; PLATELET MORPHOLOGY COMMENT ADEQUATE
[2019-07-27 05:38] LABS: CREATININE 7.6 mg/dL (0.5-1.5); POTASSIUM 3.6 mmol/L (3.5-5.1)
[2019-07-27 06:10] LABS: HEPATITIS Bs ANTIGEN SCREEN P Negative (Negative)
[2019-07-27] MEDS: INSULIN HUMULIN R 100 UNIT/ML 3ML SQ SCH ×4 (06:58→21:09)
[2019-07-27 08:00] VITALS: BP 131/75
[2019-07-27] MEDS: CHOLECALCIFEROL 1000 UNIT PO SCH (09:00)
[2019-07-27] MEDS: HEPARIN SODIUM 5000UNIT/ML 1ML VIAL SQ SCH ×2 (09:00→21:10)
[2019-07-27] MEDS ORDERED: HYDRALAZINE HCL 20 MG/ML VIAL IV PRN (09:30)
[2019-07-27] MEDS ORDERED: MORPHINE SULFATE 2 MG/ML 1ML SYG IVP PRN (09:30)
[2019-07-27] MEDS: FOLIC ACID/VITAMIN B COMP W-C 1 MG CAP/TAB PO SCH (10:23)
[2019-07-27] MEDS: FERROUS SULFATE 325 MG TABLET.DR PO SCH ×3 (10:24→21:10)
[2019-07-27] MEDS: FUROSEMIDE 80 MG TABLET PO SCH ×2 (10:25→21:10)
--- NOTE | 2019-07-27 10:40 | NUR ---
Patient requests to hold off on Heparin until verified with Dr. Dalton that 3rd dialysis will be done today. Cardizem held until s/p dialysis. Per Dialysis nurse Jhoana, pending order for 3rd dialysis order from Dr. Dalton.
[2019-07-27 12:00] VITALS: BP 138/74
--- NOTE | 2019-07-27 12:30 | NUR ---
Per Dr. Dalton, 3rd day dialysis today, cbc and bmp in the AM. Pending vein mapping per ultrasound and Dr. Wells to consult.
[2019-07-27 16:00] VITALS: BP 151/84
[2019-07-27 19:05] VITALS: BP 142/65
[2019-07-27] MEDS: FAMOTIDINE/PF 20 MG/2 ML VIAL IV SCH (21:00)
--- NOTE | 2019-07-27 21:00 | NUR ---
medications patient takes medications with applesauce. does not swallow them directly. he says he will vomit if he swallows the pills alone.
[2019-07-27] MEDS: ATORVASTATIN CALCIUM 40 MG TABLET PO SCH (21:10)
[2019-07-27 23:15] VITALS: BP 120/74
--- NOTE | 2019-07-28 00:07 | NUR ---
dialysis dialysis from 21:07 on 07/27/19 to 00:07 on 07/28/19. dialysis nurse removed 0.9 Liters. She also changed permacath dressing twice since it was bleeding continously.
[2019-07-28 03:30] VITALS: BP 142/91
[2019-07-28] MEDS: ONDANSETRON HCL 4 MG/2 ML VIAL IV PRN (05:34)
[2019-07-28] MEDS: INSULIN HUMULIN R 100 UNIT/ML 3ML SQ SCH ×4 (05:43→20:54)
[2019-07-28 06:16] LABS: BASOPHILS % (AUTO) 0.8 % (0.0-5.0); EOSINOPHILS % (AUTO) 3.3 % (0.0-8.0); HEMATOCRIT 33.7 % (42-54); LYMPHOCYTES % (AUTO) 14.5 % (21.0-51.0); MEAN CORPUSCULAR HEMOGLOBIN 26.5 pg (27.0-33.0); MEAN CORPUSCULAR HGB CONC 32.3 g/dL (32.0-36.0); MEAN CORPUSCULAR VOLUME 82.1 fL (79-99); MONOCYTES % (AUTO) 7.8 % (3.0-13.0); NEUTROPHILS % (AUTO) 73.6 % (40.0-77.0); NUCLEATED RED BLOOD CELLS 0.1 % (0.0-0.19); PLATELET COUNT (AUTO) 287 K/uL (130-400); RED CELL DISTRIBUTION WIDTH 17.6 % (11.0-15.5)
--- NOTE | 2019-07-28 06:26 | NUR ---
dressing change permacath continously bleeding. removed and changed dressing using sterile technique. will continue to monitor dressing. at 00:07, the dialysis nurse had changed the dressing for the same reason, continous bleeding.
[2019-07-28 06:33] LABS: CREATININE 5.6 mg/dL (0.5-1.5); POTASSIUM 3.7 mmol/L (3.5-5.1)
[2019-07-28 08:00] VITALS: BP 167/82
[2019-07-28] MEDS: CHOLECALCIFEROL 1000 UNIT PO SCH (08:56)
[2019-07-28] MEDS: FUROSEMIDE 80 MG TABLET PO SCH ×2 (08:56→20:47)
[2019-07-28] MEDS: HEPARIN SODIUM 5000UNIT/ML 1ML VIAL SQ SCH ×2 (08:56→21:00)
[2019-07-28] MEDS: DILTIAZEM HCL 120 MG CAP.SR.24H PO SCH ×2 (08:57→08:59)
[2019-07-28] MEDS: AMLODIPINE BESYLATE 5 MG TAB PO SCH (08:57)
[2019-07-28] MEDS: FOLIC ACID/VITAMIN B COMP W-C 1 MG CAP/TAB PO SCH (08:57)
[2019-07-28] MEDS: FERROUS SULFATE 325 MG TABLET.DR PO SCH ×3 (08:57→20:48)
[2019-07-28 12:00] VITALS: BP 125/106
[2019-07-28 16:00] VITALS: BP 141/72
[2019-07-28 19:31] VITALS: BP 139/80
[2019-07-28] MEDS ORDERED: CEFAZOLIN SODIUM 1 GM VIAL IVP PRN (20:00)
[2019-07-28] MEDS: FAMOTIDINE/PF 20 MG/2 ML VIAL IV SCH (20:47)
[2019-07-28] MEDS: ATORVASTATIN CALCIUM 40 MG TABLET PO SCH (20:48)
--- NOTE | 2019-07-28 20:59 | NUR ---
NURSE Placed a call to Dr Wells nurse Edie as per Pediatric Speech Language Pathologist Bartolo Whitlock Rn to call her.Informed her pt is upset that surgeon has not spoke to him about the procedure and why he placed order to get consent for left av fistula if he's left handed and dr martinez told him it's on the right.She said Dr Wells will talk to him in am an will tell him to change the order.
--- NOTE | 2019-07-28 21:47 | NUR ---
HEPARIN HEPARIN not given,pt going for surgery in am.
[2019-07-28 23:29] VITALS: BP 146/82
[2019-07-29 04:01] VITALS: BP 131/78
[2019-07-29 05:17] LABS: HEMATOCRIT 30.3 % (42-54); MEAN CORPUSCULAR HEMOGLOBIN 26.5 pg (27.0-33.0); MEAN CORPUSCULAR HGB CONC 32.6 g/dL (32.0-36.0); MEAN CORPUSCULAR VOLUME 81.4 fL (79-99); PLATELET COUNT (AUTO) 295 K/uL (130-400); RED BLOOD CELL COUNT(AUTO) 3.73 MIL/uL (4.50-6.20); RED CELL DISTRIBUTION WIDTH 17.3 % (11.0-15.5); WHITE BLOOD COUNT (AUTO) 12.1 K/uL (4.8-10.8)
[2019-07-29 05:29] LABS: INR 0.96 (0.85-1.15); PARTIAL THROMBOPLASTIN TIME 29.4 SEC (26.3-35.5); PROTHROMBIN TIME 10.1 SEC (9.6-11.6)
[2019-07-29 05:38] LABS: CREATININE 7.4 mg/dL (0.5-1.5); POTASSIUM 3.6 mmol/L (3.5-5.1)
[2019-07-29] MEDS: INSULIN HUMULIN R 100 UNIT/ML 3ML SQ SCH ×2 (06:48→20:40)
[2019-07-29] MEDS: ONDANSETRON HCL 4 MG/2 ML VIAL IV PRN ×2 (07:08→14:43)
[2019-07-29 08:00] VITALS: BP 117/70
[2019-07-29] MEDS: HEPARIN SODIUM 5000UNIT/ML 1ML VIAL SQ SCH ×2 (08:08→20:44)
[2019-07-29] MEDS: AMLODIPINE BESYLATE 5 MG TAB PO SCH (09:00)
[2019-07-29] MEDS: DILTIAZEM HCL 120 MG CAP.SR.24H PO SCH (09:00)
[2019-07-29] MEDS: FOLIC ACID/VITAMIN B COMP W-C 1 MG CAP/TAB PO SCH (09:00)
[2019-07-29] MEDS: CHOLECALCIFEROL 1000 UNIT PO SCH (09:00)
--- NOTE | 2019-07-29 09:00 | NUR ---
CALL TO ADALBERTO AT HD NO APPROVAL [facility]ET FROM [facility] CLEARANCE FOR RECURRING OUT PT HD TX
--- NOTE | 2019-07-29 09:28 | NUR ---
Patient refused blood pressure medications at this time stating his systolic BP 117 which is never that low. Stated will take after dialysis.
[2019-07-29 12:00] VITALS: BP 144/83
[2019-07-29 16:00] VITALS: BP 145/84
--- NOTE | 2019-07-29 18:40 | NUR ---
Per Dr. Wells, surgery for Rt AV Fistula placement to be performed 07/30/19 in AM. Patient to be prepped in AM. NPO after midnight. Patient requested to have dialysis performed. Notified Jhoana Dialysis nurse of request.
--- NOTE | 2019-07-29 19:44 | NUR ---
SCHEDULE Spoke abner Whitlock Rn,procedure rescheduled for am.Pt aware.
[2019-07-29 20:00] VITALS: BP 111/65
[2019-07-29] MEDS: FAMOTIDINE/PF 20 MG/2 ML VIAL IV SCH (21:00)
[2019-07-29] MEDS: FUROSEMIDE 80 MG TABLET PO SCH (21:00)
[2019-07-29] MEDS: FERROUS SULFATE 325 MG TABLET.DR PO SCH (21:00)
[2019-07-29] MEDS: ATORVASTATIN CALCIUM 40 MG TABLET PO SCH (21:00)
[2019-07-30] VITALS (22 sets, daily range): BP systolic 96–168; BP diastolic 56–87
--- NOTE | 2019-07-30 00:43 | NUR ---
DIALYSIS Pt dialysed for 3 hrs,removed 1 liter,chase well.
[2019-07-30] MEDS: INSULIN HUMULIN R 100 UNIT/ML 3ML SQ SCH ×3 (05:57→16:30)
[2019-07-30] MEDS: HEPARIN SODIUM 5000UNIT/ML 1ML VIAL SQ SCH (09:00)
[2019-07-30] MEDS: FOLIC ACID/VITAMIN B COMP W-C 1 MG CAP/TAB PO SCH (09:00)
[2019-07-30] MEDS: DILTIAZEM HCL 120 MG CAP.SR.24H PO SCH (09:00)
[2019-07-30] MEDS: FUROSEMIDE 80 MG TABLET PO SCH (09:00)
[2019-07-30] MEDS: FERROUS SULFATE 325 MG TABLET.DR PO SCH (09:00)
[2019-07-30] MEDS: CHOLECALCIFEROL 1000 UNIT PO SCH (09:00)
[2019-07-30] MEDS: AMLODIPINE BESYLATE 5 MG TAB PO SCH (09:00)
[2019-07-30] MEDS ORDERED: DEXAMETHASONE SOD PHOSPHATE 10MG/ML 1ML VIAL ONE ×2 (10:29→10:34)
[2019-07-30] MEDS ORDERED: MIDAZOLAM HCL 1 MG/ML 2ML VIAL ONE (10:29)
[2019-07-30] MEDS ORDERED: ROCURONIUM 10MG/1ML SYR 10 MG/ML ML ONE (10:29)
[2019-07-30] MEDS ORDERED: LIDOCAINE PF 2% 5ML ABBOJECT ONE (10:29)
[2019-07-30] MEDS ORDERED: GLYCOPYRROLATE 1 MG/5 ML SYRINGE ONE (10:29)
[2019-07-30] MEDS ORDERED: SUCCINYLCHOLINE 200MG/10ML SYR ONE (10:29)
[2019-07-30] MEDS ORDERED: ONDANSETRON HCL 4 MG/2 ML VIAL ONE (10:29)
[2019-07-30] MEDS ORDERED: NEOSTIGMINE 5MG/5ML SYR IV ONE (10:29)
[2019-07-30] MEDS ORDERED: PROPOFOL 10 MG/ML 20ML VIAL IV ONE (10:29)
[2019-07-30] MEDS ORDERED: FENTANYL CITRATE PF 50 MCG/1 ML 2ML VIAL ONE (10:30)
[2019-07-30] MEDS ORDERED: BACITRACIN 50,000 UNIT VIAL ONE (10:52)
[2019-07-30 11:29] LABS: CREATININE 6.2 mg/dL (0.5-1.5)
[2019-07-30] MEDS ORDERED: EPHEDRINE SULFATE 50 MG/ML AMPULE ONE (12:06)
[2019-07-30] MEDS ORDERED: HEPARIN SODIUM 1000UNIT/ML 10ML VIAL ONE (12:22)
[2019-07-30] MEDS ORDERED: OCTYL 2-CYANOACRYLATE 1 EACH TP ONE (12:23)
[2019-07-30] MEDS ORDERED: MEPERIDINE-PF 25 MG/ML SYG ONE ×2 (12:45→12:53)
--- NOTE | 2019-07-30 13:24 | NUR ---
SENT MORE INFO TO [facility]. STILL PENDING AVF INFO. WILL SEND WHEN AVAILABLE. STILL NO AUTH FROM ME
[2019-07-30] MEDS ORDERED: ACETAMINOPHEN-CODEINE 300/30MG TAB PO PRN (17:00)
[2019-07-30] MEDS ORDERED: AMLO5TAB4 PO (17:34)
--- NOTE | 2019-07-30 17:40 | NUR ---
CHAIR TIME RECD, PT RELUCTANT 1630 ADVISED RN AND PT THAT HD CHAIR TIME WAS RECD/ CONFIRMED SPOKE TO PATIENT, SEEMED HAPPY, MAY TO BE RELEASED TODAY WENT TO ROOM TO GIVE ADDRESS AND TIME, NOW PT UPSET WITH CHAIR TIME, STATES MARKETING COMMUNICATIONS COORDINATOR PUSHED HIIM INTO THAT TIME TTS 2PM AND HE WAS NOT GIVEN A CHOICE. CALL TO JAGDISH AT [facility], STATES SHE HAS NO TIMES ON MWF EXCEPT 4TH SHIFT, AND ONE 5 AM POSSIBILITY ON TTS- PATIENT AGREED TO GO TO HD ON 2PM TOMORROW AND FIGURE IT OUT. ALSO REQUESTED NAMES AND ADDRESS OF OTHER HD CENTERS 'IN CASE HE WANTS TO SWITCH CENTER. ADVISED RN THAT PT IS AGREED TO GO TO HD TOMORROW AT THE CENTER
--- NOTE | 2019-07-30 19:03 | NUR ---
INSION DRY AND INTACT .RT ARM WARM .RADIAL PULSE PALPABLE .DENIES ANY NUMBNESS . DISCHARGE INSTRUCTION PROVIDED TO PATIENT.
== END 2019-07-30 19:45 | disposition home or self-care (01) | DRG 417 ==
LOC: EDH 20:18 → EDHIP 23:32 → OBSVTOIN 23:32 → 3CH 07-21 00:18
PROVIDERS: ADMIT Hospitalist; ATTEND Hospitalist
PROC: 0FT44ZZ Resection of Gallbladder, Percutaneous Endoscopic Approach (ICD-10-PCS; principal; 2019-07-22 09:16)
PROC: 0JH63XZ Insertion of Tunneled Vascular Access Device into Chest Subcutaneous Tissue and Fascia, Percutaneous Approach (ICD-10-PCS; 2019-07-24)
PROC: 02H633Z Insertion of Infusion Device into Right Atrium, Percutaneous Approach (ICD-10-PCS; 2019-07-24)
PROC: B5181ZA Fluoroscopy of Superior Vena Cava using Low Osmolar Contrast, Guidance (ICD-10-PCS; 2019-07-24)
PROC: B548ZZA Ultrasonography of Superior Vena Cava, Guidance (ICD-10-PCS; 2019-07-24)
PROC: 5A1D70Z Performance of Urinary Filtration, Intermittent, Less than 6 Hours Per Day (ICD-10-PCS; 2019-07-24)
PROC: 5A1D70Z Performance of Urinary Filtration, Intermittent, Less than 6 Hours Per Day (ICD-10-PCS; 2019-07-26)
PROC: 5A1D70Z Performance of Urinary Filtration, Intermittent, Less than 6 Hours Per Day (ICD-10-PCS; 2019-07-27)
PROC: 5A1D70Z Performance of Urinary Filtration, Intermittent, Less than 6 Hours Per Day (ICD-10-PCS; 2019-07-29)
PROC: 03170ZD Bypass Right Brachial Artery to Upper Arm Vein, Open Approach (ICD-10-PCS; 2019-07-30)
DX: K80.00 Calculus of gallbladder with acute cholecystitis without obstruction (principal); K85.10 Biliary acute pancreatitis without necrosis or infection; N18.6 End stage renal disease; Z68.41 Body mass index [BMI] 40.0-44.9, adult; N17.9 Acute kidney failure, unspecified; E87.1 Hypo-osmolality and hyponatremia; I13.2 Hypertensive heart and chronic kidney disease with heart failure and with stage 5 chronic kidney disease, or end stage renal disease; K76.0 Fatty (change of) liver, not elsewhere classified; R16.0 Hepatomegaly, not elsewhere classified; E83.51 Hypocalcemia; E86.0 Dehydration; E66.01 Morbid (severe) obesity due to excess calories; E11.22 Type 2 diabetes mellitus with diabetic chronic kidney disease; K82.A1 Gangrene of gallbladder in cholecystitis; M19.90 Unspecified osteoarthritis, unspecified site; D64.9 Anemia, unspecified; E11.51 Type 2 diabetes mellitus with diabetic peripheral angiopathy without gangrene; I25.10 Atherosclerotic heart disease of native coronary artery without angina pectoris; E78.5 Hyperlipidemia, unspecified; E87.5 Hyperkalemia; G47.30 Sleep apnea, unspecified; H54.62 Unqualified visual loss, left eye, normal vision right eye; I48.0 Paroxysmal atrial fibrillation; I50.9 Heart failure, unspecified; Z91.15 Patient's noncompliance with renal dialysis; Z91.19 Patient's noncompliance with other medical treatment and regimen; Z99.2 Dependence on renal dialysis; Z83.3 Family history of diabetes mellitus; Z82.49 Family history of ischemic heart disease and other diseases of the circulatory system; Z81.1 Family history of alcohol abuse and dependence; Z83.79 Family history of other diseases of the digestive system
CPT/HCPCS: 36415; 36558; 71045; 74176; 76705; 77001; 80048; 80053; 80061; 81001; 82040; 82550; 82565; 82728; 82948; 83036; 83540; 83550; 83690; 83735; 83874; 84100; 84484; 84520; 85014; 85018; 85025; 85027; 85610; 85730; 86701; 86704; 86706; 86850; 86900; 86901; 87340; 87390; 87520; 88304; 90935; 93005; 93970; C1750; G0378; J0330; J0690; J1100; J1170; J1644; J1815; J2001; J2175; J2250; J2270; J2370; J2405; J2543; J2704; J2710; J3010; J3490; J7030; J7120

== ENCOUNTER 2020-02-21 12:13 | Emergency (ER) | payer OTHER ==
[~2020-02-21 12:13] MED LIST changes: +AMLO5TAB4 PO; -BISA5TAB12 PO
[2020-02-21 12:45] LABS: BASOPHILS % (AUTO) 0.5 % (0.0-5.0); EOSINOPHILS % (AUTO) 1.8 % (0.0-8.0); MEAN CORPUSCULAR HGB CONC 32.5 g/dL (32.0-36.0); MEAN CORPUSCULAR VOLUME 89.3 fL (79-99); MONOCYTES % (AUTO) 6.2 % (3.0-13.0); NEUTROPHILS % (AUTO) 70.7 % (40.0-77.0); PLATELET COUNT (AUTO) 217 K/uL (130-400); RED BLOOD CELL COUNT(AUTO) 4.03 MIL/uL (4.50-6.20); RED CELL DISTRIBUTION WIDTH 15.3 % (11.0-15.5); WHITE BLOOD COUNT (AUTO) 10.2 K/uL (4.8-10.8)
[2020-02-21] MEDS ORDERED: ONDANSETRON HCL 4 MG/2 ML VIAL ONE (12:48)
[2020-02-21 13:05] LABS: CREATININE 6.7 mg/dL (0.5-1.5); POTASSIUM 3.9 mmol/L (3.5-5.1)
[2020-02-21 13:09] LABS: ALBUMIN 3.8 g/dL (3.5-5.0); BILIRUBIN,TOTAL 0.5 mg/dL (0.2-1.0); TOTAL PROTEIN, SERUM 8.1 g/dL (6.0-8.3)
[2020-06-29] MEDS ORDERED: INSU100V12 SQ (16:15)
[2020-06-29] MEDS ORDERED: CHOL100046 PO (16:15)
[2020-06-29] MEDS ORDERED: ASPI-1197 PO (16:15)
== END 2020-02-21 14:39 | disposition home or self-care (01) ==
LOC: EDH 12:13
DX: R11.2 Nausea with vomiting, unspecified (principal); I13.2 Hypertensive heart and chronic kidney disease with heart failure and with stage 5 chronic kidney disease, or end stage renal disease; E11.22 Type 2 diabetes mellitus with diabetic chronic kidney disease; N18.6 End stage renal disease; I50.9 Heart failure, unspecified; I48.91 Unspecified atrial fibrillation; I25.10 Atherosclerotic heart disease of native coronary artery without angina pectoris; E78.5 Hyperlipidemia, unspecified; Z90.49 Acquired absence of other specified parts of digestive tract
CPT/HCPCS: 36415; 71045; 80053; 82550; 83690; 84484; 85025; 93005; 96361; 96374; 99285; J2405

== ENCOUNTER 2020-06-30 06:34 | Day surgery (SDC) | payer OTHER ==
[2020-06-26 15:11] LABS: PARTIAL THROMBOPLASTIN TIME 28.1 SEC (26.3-35.5)
[2020-06-26 15:13] LABS: ALBUMIN 3.6 g/dL (3.5-5.0); BILIRUBIN,TOTAL 0.3 mg/dL (0.2-1.0); CREATININE 7.1 mg/dL (0.5-1.5); POTASSIUM 5.2 mmol/L (3.5-5.1); TOTAL PROTEIN, SERUM 8.1 g/dL (6.0-8.3)
[2020-06-26 15:27] LABS: INR 0.93 (0.85-1.15); PROTHROMBIN TIME 10.1 SEC (9.6-11.6)
[2020-06-26 16:08] LABS: BASOPHILS % (AUTO) 0.9 % (0.0-5.0); EOSINOPHILS % (AUTO) 3.8 % (0.0-8.0); HEMATOCRIT 36.6 % (42-54); LYMPHOCYTES % (AUTO) 25.3 % (21.0-51.0); MEAN CORPUSCULAR HEMOGLOBIN 29.1 pg (27.0-33.0); MEAN CORPUSCULAR HGB CONC 31.7 g/dL (32.0-36.0); MONOCYTES % (AUTO) 9.4 % (3.0-13.0); NEUTROPHILS % (AUTO) 59.9 % (40.0-77.0); PLATELET COUNT (AUTO) 205 K/uL (130-400); RED BLOOD CELL COUNT(AUTO) 3.98 MIL/uL (4.50-6.20); RED CELL DISTRIBUTION WIDTH 15.1 % (11.0-15.5); WHITE BLOOD COUNT (AUTO) 8.8 K/uL (4.8-10.8)
[2020-06-29 15:58] VITALS: BP 127/65
--- NOTE | 2020-06-29 16:48 | NUR ---
EKG INFORMED DR. GANDARA OF ABNORMAL EKG. NO ORDERS RECEIVED. PROCEED WITH PLANNED PROCEDURE.
[~2020-06-30] VITALS: Ht 172.7 cm; Wt 121.6 kg
[2020-06-30] VITALS (20 sets, daily range): BP systolic 123–156; BP diastolic 46–80
[2020-06-30] MEDS: CEFUROXIME SODIUM 1.5 GM VIAL IVP SCH ×2 (06:00→08:05)
[~2020-06-30 06:34] MED LIST changes: -AMLO5TAB4 PO; +ASPI-1197 PO; +CHOL100046 PO; -CHOL200074 PO; -DILT-36 PO; -FERS325 PO; -FURO80TA3 PO; -INSU100I21 SQ; +INSU100V12 SQ; -LABE200T5 PO
[2020-06-30] MEDS ORDERED: SUCCINYLCHOLINE CHLORIDE 20 MG/ML 10 ML VIAL ONE ×2 (08:02→08:05)
[2020-06-30] MEDS ORDERED: DEXAMETHASONE SOD PHOSPHATE 10MG/ML 1ML VIAL ONE (08:02)
[2020-06-30] MEDS ORDERED: ONDANSETRON HCL 4 MG/2 ML VIAL ONE (08:02)
[2020-06-30] MEDS ORDERED: LIDOCAINE PF 2% 5ML ABBOJECT ONE ×2 (08:02→08:03)
[2020-06-30] MEDS ORDERED: FENTANYL CITRATE PF 50 MCG/1 ML 2ML VIAL ONE (08:03)
[2020-06-30] MEDS ORDERED: ROCURONIUM 10MG/1ML SYR 10 MG/ML ML ONE (08:03)
[2020-06-30] MEDS ORDERED: MIDAZOLAM HCL 1 MG/ML 2ML VIAL ONE (08:03)
[2020-06-30] MEDS ORDERED: NEOSTIGMINE 5MG/5ML SYR IV ONE (08:03)
[2020-06-30] MEDS ORDERED: GLYCOPYRROLATE 1 MG/5 ML SYRINGE ONE (08:03)
[2020-06-30] MEDS ORDERED: PROPOFOL 10 MG/ML 20ML VIAL IV ONE (08:03)
[2020-06-30] MEDS ORDERED: SODIUM CHLORIDE 0.9% 1000ML 1,000 ML IV ONE (08:12)
[2020-06-30] MEDS ORDERED: CEFAZOLIN SODIUM 1 GM VIAL ONE (08:17)
[2020-06-30] MEDS ORDERED: PHENYLEPHRINE HCL 10 MG/ML 1ML VIAL IV ONE (08:47)
[2020-06-30] MEDS ORDERED: VANCOMYCIN HCL 1 GM VIAL ONE (10:16)
--- NOTE | 2020-06-30 12:10 | NUR ---
Pt received Pt was received from PACU via stretcher accompanied by Jairo Jaquez RN. Pt awake, alert and talkative. Denies any discomfort. Has dressing to right upper arm with ALEXIS in place. Bruit was auscultated. Fingers warm to touch. Order was received to d/c ALEXIS drain. Drain was removed intact by Jaior Jaquez RN. appx 25ml of sanguinous drainage noted in bulb. Pt tolerated well. Dressing over site. Will monitor for any further bleeding.
--- NOTE | 2020-06-30 13:10 | NUR ---
D/C Pt was prepared for discharge. at bedside. Verbal discharge instructions were given to pt and . Written instructions and prescription were given to . Instructions and new medication were discussed. Also with date and time of f/u appt. Both verbalized understanding. Scant amount of serous sanginous drainage noted to dressing. Pt in good spirits. Pt was then taken out of facility via w/c to private vehicle.
== END 2020-06-30 13:20 ==
LOC: DAH 06:34
PROVIDERS: ATTEND Thoracic Surgery (Cardiothoracic Vascular Surgery)
DX: I13.2 Hypertensive heart and chronic kidney disease with heart failure and with stage 5 chronic kidney disease, or end stage renal disease (principal); I50.9 Heart failure, unspecified; E11.22 Type 2 diabetes mellitus with diabetic chronic kidney disease; N18.6 End stage renal disease; I25.10 Atherosclerotic heart disease of native coronary artery without angina pectoris; Z90.49 Acquired absence of other specified parts of digestive tract; Z98.890 Other specified postprocedural states; I77.0 Arteriovenous fistula, acquired; Z79.01 Long term (current) use of anticoagulants; Z79.899 Other long term (current) drug therapy
CPT/HCPCS: 36415 ×2; 36819; 71045; 80053; 82948 ×2; 84132; 85025; 85610; 85730; 93005; A4215; A4222; A4223; A4663; A4930; A6207; A6260; A6446; C1713 ×2; C1768; C9803; J0330 ×2; J0690; J0697; J1100; J1644; J2001 ×2; J2250; J2370; J2405; J2704; J2710; J3010; J3370; J3490; J7030; U0003